=== PATIENT | female | born 1970 | race Two or more races ===

== ENCOUNTER 2018-07-04 21:38 | Emergency (ER) | payer OTHER ==
[~2018-07-04] VITALS: Ht 152.4 cm; Wt 104.3 kg
[~2018-07-04 21:38] MED LIST: FORTAMET1000 MG; LOSARTAN-HCTZ1 EAC1
== END 2018-07-05 14:03 | disposition home or self-care (01) ==
LOC: ER 21:38
DX: E11.65 Type 2 diabetes mellitus with hyperglycemia (principal)

== ENCOUNTER 2021-11-08 23:09 | Emergency (ER) | payer OTHER ==
[~2021-11-08] VITALS: Ht 165.1 cm; Wt 83.9 kg
[2021-11-08] MEDS ORDERED: LANTUS SOL100 UNIT/1 (23:42)
[2021-11-08] MEDS ORDERED: HUMULIN R100 UNIT/1 (23:42)
[2021-11-09] MEDS ORDERED: PEPCID AC20 MG PO (05:51)
[2021-11-09] MEDS ORDERED: LEVSIN0.125 MG PO (05:51)
== END 2021-11-09 06:03 | disposition home or self-care (01) ==
LOC: ER 23:09
DX: K29.60 Other gastritis without bleeding (principal); E11.65 Type 2 diabetes mellitus with hyperglycemia; I16.9 Hypertensive crisis, unspecified; Z20.822 Contact with and (suspected) exposure to COVID-19; I10 Essential (primary) hypertension

== ENCOUNTER 2022-06-25 16:36 | Emergency (ER) | payer OTHER ==
[~2022-06-25] VITALS: Ht 167.6 cm; Wt 83.9 kg
[~2022-06-25 16:36] MED LIST changes: +HUMULIN R100 UNIT/1; +LANTUS SOL100 UNIT/1; +LEVSIN0.125 MG PO; +PEPCID AC20 MG PO
[2022-06-25] MEDS ORDERED: LEVSIN/SL0.125 MG SL (21:13)
[2022-06-25] MEDS ORDERED: PEPCID AC20 MG PO (21:13)
== END 2022-06-25 21:16 | disposition home or self-care (01) ==
LOC: ER 16:36
DX: R10.13 Epigastric pain (principal); I10 Essential (primary) hypertension; E11.9 Type 2 diabetes mellitus without complications; Z79.4 Long term (current) use of insulin; Z79.84 Long term (current) use of oral hypoglycemic drugs

== ENCOUNTER 2025-02-18 20:18 | Emergency (ER) | payer OTHER ==
[~2025-02-18] VITALS: Ht 165.1 cm; Wt 77.1 kg
[~2025-02-18 20:18] MED LIST changes: +LEVSIN/SL0.125 MG SL
[2025-02-18] MEDS ORDERED: ONDANSETRON HCL 2 MG/ML VIAL ONE (21:39)
[2025-02-18] MEDS ORDERED: 0.9 % SODIUM CHLORIDE 1,000 ML IV SCH (21:45)
[2025-02-18] MEDS ORDERED: INSULIN REGULAR, HUMAN 1,000 UNIT/10 ML UNITS IV ONE (21:45)
[2025-02-18] MEDS ORDERED: ONDANSETRON HCL 2 MG/ML VIAL IV ONE (21:45)
[2025-02-18 22:24] LABS: ALBUMIN 2.5 gm/dL (3.4-5.0); BILIRUBIN TOTAL 0.42 mg/dL (0.3-1.2); CALCIUM 9.2 mg/dL (8.5-10.1); CREATININE SERUM 0.75 mg/dL (0.55-1.02); GFR 80.83; GLOBULINA 4.8 G/DL (2.4-3.5); HEMATOCRIT 39.2 % (36.0-45.00); HEMOGLOBIN 13.3 g/dL (12.0-15.00); MEAN CELL VOLUME 76.5 fL (80.00-100.00); MEAN CORPUSCULAR HGB CONC 34.1 g/dl (32.0-36.0); PLATELET COUNT 176 K/uL (150-450); POTASSIUM 3.43 mEq/L (3.5-5.1); RED BLOOD COUNT 5.12 M/uL (4.00-6.00); RED CELL DISTRIBUTION WIDTH 14.2 % (11.5-14.5); TOTAL PROTEIN 7.3 gm/dL (6.4-8.2)
[2025-02-18 22:53] LABS: PH,URINE 5.5 (5.0-8.0); URINE APPEARANCE Cloudy; URINE BILIRRUBIN Negative (NEGATIVE); URINE BLOOD Moderate; URINE COLOR Yellow; URINE KETONE 15 (NEGATIVE); URINE LEUKOCYTE Moderate; URINE NITRATE Negative
[2025-02-18 22:57] LABS: URINE EPITHELIAL CELLS 71.5 uL (0.0-38.8); URINE RBC 162.4 uL (0.0-20.8); URINE WBC 451.6 uL (0.0-23.2)
[2025-02-18 23:43] LABS: URINE BACTERIA > 9821.5 uL (0.0-1933); URINE CAST 0.73 uL (0.0-1.40); URINE GLUCOSE >=1000 MG/DL (NEGATIVE); URINE PROTEIN 100 (NEGATIVE)
[2025-02-19] MEDS ORDERED: INSULIN REGULAR, HUMAN 1,000 UNIT/10 ML UNITS SUBCUTANEO STA (04:28)
[2025-02-19] MEDS ORDERED: CEFTRIAXONE SODIUM 1,000 MG VIAL ONE (04:43)
[2025-02-19] MEDS ORDERED: CEFTRIAXONE SODIUM 1,000 MG VIAL IV ONE (23:45)
[2025-02-19] MEDS ORDERED: INSULIN REGULAR, HUMAN 1,000 UNIT/10 ML UNITS IV ONE (23:45)
== END 2025-02-19 04:48 | disposition home or self-care (01) ==
LOC: ER 20:19
PROVIDERS: Emergency Medicine
DX: N39.0 Urinary tract infection, site not specified (principal); K29.70 Gastritis, unspecified, without bleeding; R10.9 Unspecified abdominal pain; Z20.822 Contact with and (suspected) exposure to COVID-19; I10 Essential (primary) hypertension; E11.9 Type 2 diabetes mellitus without complications; Z79.4 Long term (current) use of insulin; Z79.84 Long term (current) use of oral hypoglycemic drugs